=== PATIENT | female | born 1980 | race African-American/Black ===

== ENCOUNTER 2017-01-24 08:29 | Inpatient (IN) | payer OTHER ==
[~2017-01-24] VITALS: Ht 152.4 cm; Wt 115.7 kg
[~2017-01-24 08:29] MED LIST: ACETAMINOPHEN325 M1 PO; ALDOMET250 MG PO; ALPRAZOLAM 0.0.25 M1 PO; AMITRIPTYLINE H25 M2 PO; AMITRIPTYLINE H25 M3 PO; AMOXICILLIN250 M1 PO; ATIVAN0.5 MG PO; ATIVAN1 MG PO; BACTRIM DS TAB1 EACH PO; BENADRYL25 MG PO; CATAPRES-TTS 20.2 M1 TD; CATAPRES-TTS 20.2 M1 TP; CATAPRESS3 TD; CEFTIN500 MG PO; CIPROFLOXACIN500 M1 PO; CIPROFLOXACIN500 M3 PO; CITRATE OF MAG296 ML PO; COLACE100 MG PO; COUMADIN 4 MG TA4 M1; COUMADIN 5 MG TA5 M1 PO; DILAUDID; DILAUDID 2 MG TA2 MG PO; DILAUDID2 M1 PO; DIPHENHYDRAMINE50 MG PO; DOLOPHINE HCL5 MG; DOMPERIDONE PO; ENDOCET 5-3251 EACH PO; ERYTHROMYCIN250 MG; ESTRACE1 MG PO; FAMOTIDINE; FENTANYL PA50 MCG/HR TRANSDERM; FLAGYL500 MG PO; FLUCONAZOLE 10100 MG; GABAPENTIN 100100 MG PO; GABAPENTIN PO; GABAPENTIN100 MG PO; GLYCOLAX POWDER17 G1 PO; HYDRALAZINE 2525 M1 PO; HYDROCODONE-AP1 EA12 PO; IBUPROFEN 200200 M1 PO; KLOR-CON 1010 MEQ PO; L-GLUTAMINE500 M1; LANTUS; LANTUS SC; LANTUS SUBQ; LEVEMIR SC; LEVEMIR SUBQ; LISINOPRIL20 MG PO; LISINOPRIL40 MG PO; LOPRESSOR25; LOPRESSOR25 PO; LORAZEPAM 1 MG T1 M1 PO; LORAZEPAM 1 MG T1 MG PO; MIRALAX255 GM PO; MIRTAZAPINE15 M1; MS CONTIN 100100 MG PO; MULTI-VITAMIN1 EAC5 PO; MULTIVITAMINS PO; MYDRIACYL15 ML OPHTHALMIC; NAFCILLIN 2 GM A2 G1 IV; NEURONTIN800 MG PO; NORCO 5-325 TA1 EACH PO; NORVASC10 MG PO; NOVOLOG100 UNIT/1; NOVOLOG100 UNIT/1 SQ; NOVOLOG100 UNIT/1 SUBQ; OMEPRAZOLE 20 M20 M1 PO; OMEPRAZOLE 20 M20 MG PO; ONDANSETRON HCL4 M2 PO; PEPCID40 MG PO; PERCOCET 5-3251 EACH PO; PHENERGAN 25 MG25 M1 PO; PRENATAL PO; PRINIVIL10 MG PO; PROTONIX40 M2 PO; RANITIDINE 150150 MG PO; REGLAN 5 MG TAB5 M1 PO; REMERON15 MG PO; SLOW-MAG64 MG PO; SYNTHROID88 MCG PO; TOPROL XL100 MG PO; TRANDATE 200 M200 M1 PO; TRANSDERM-SCO1 PATC1 TD; TRANSDERM-SCO1 PATC1 TOP; TRANSDERM-SCO1 PATC1 TRANSDERM; TRANSDERM-SCO1 PATCH TD; XANAX 0.5 MG0.5 MG PO; ZANTAC PO; ZOFRAN 4 MG ORAL4 M1 DIS; ZOFRAN 4 MG ORAL4 M1 PO; ZOFRAN 4 MG ORAL4 MG PO; ZOFRAN ODT4 MG PO; ZOFRAN4 MG; ZOFRAN4 MG PO; ZOFRAN8 MG; ZOFRAN8 MG PO; [UNRECOGNIZED DRUG - OTHER] PO
[2017-01-24 08:30] VITALS: BP 154/66
[2017-01-24 09:28] LABS: ABSOLUTE NEUTROPHILS 7.5 thou/uL (1.4-8.2); BASOPHILS 0.4 % (0.0-2.0); EOSINOPHILS 0.3 % (0.0-3.0); HEMOGLOBIN 11.2 gm/dL (12.0-15.0); LYMPHOCYTES 18.1 % (24.0-44.0); MCHC 32.1 g/dL (28.0-37.0); MCV 84.1 fL (80.0-100.0); MONOCYTES 3.5 % (1.0-8.0); PLATELET COUNT 239 thou/uL (150-400); POLYS 77.7 % (36.0-66.0); RBC 4.16 mil/uL (4.20-5.00); RDW 15.9 % (10.5-14.5); WBC 9.6 thou/uL (4.0-11.0)
[2017-01-24 09:30] LABS: MANUAL DIFF NO
[2017-01-24 09:43] LABS: CALCIUM 10.3 mg/dL (8.5-10.1); CREATININE 2.5 mg/dL (0.6-1.0); DIRECT BILIRUBIN 0.1 mg/dL (<0.1-0.3); POTASSIUM 4.6 mmol/L (3.5-5.1); TOTAL BILIRUBIN 0.5 mg/dL (<0.1-1.0); TOTAL PROTEIN 9.2 g/dL (6.4-8.2)
[2017-01-24] MEDS ORDERED: AMITRIPTYLINE H25 M2 PO (09:54)
[2017-01-24 13:01] VITALS: BP 133/71
[2017-01-24 19:34] VITALS: BP 146/74
[2017-01-25 02:06] LABS: GLYCOHEMOGLOBIN (HGB A1C) 14.8 % (4.8-5.6)
[2017-01-25 05:04] VITALS: BP 144/74
[2017-01-25 08:41] LABS: CALCIUM 9.2 mg/dL (8.5-10.1); CREATININE 1.6 mg/dL (0.6-1.0); POTASSIUM 4.4 mmol/L (3.5-5.1)
[2017-01-25 11:49] LABS: ABSOLUTE NEUTROPHILS 7.2 thou/uL (1.4-8.2); BASOPHILS 0.4 % (0.0-2.0); EOSINOPHILS 1.1 % (0.0-3.0); HEMATOCRIT 34.1 % (37.0-47.0); HEMOGLOBIN 11.1 gm/dL (12.0-15.0); LYMPHOCYTES 23.6 % (24.0-44.0); MCHC 32.6 g/dL (28.0-37.0); MCV 82.8 fL (80.0-100.0); MONOCYTES 5.1 % (1.0-8.0); PLATELET COUNT 235 thou/uL (150-400); POLYS 69.8 % (36.0-66.0); RBC 4.12 mil/uL (4.20-5.00); RDW 15.5 % (10.5-14.5); WBC 10.3 thou/uL (4.0-11.0)
[2017-01-25 11:55] LABS: MANUAL DIFF NO
[2017-01-25 16:12] VITALS: BP 146/77
[2017-01-25 20:38] VITALS: BP 144/84
[2017-01-26 05:10] VITALS: BP 143/71
[2017-01-26 06:17] LABS: BASOPHILS 0.4 % (0.0-2.0); EOSINOPHILS 1.1 % (0.0-3.0); HEMOGLOBIN 9.7 gm/dL (12.0-15.0); LYMPHOCYTES 29.8 % (24.0-44.0); MCH 27.1 pg (26.0-34.0); MCHC 32.4 g/dL (28.0-37.0); MCV 83.6 fL (80.0-100.0); MONOCYTES 5.3 % (1.0-8.0); PLATELET COUNT 213 thou/uL (150-400); POLYS 63.4 % (36.0-66.0); RBC 3.58 mil/uL (4.20-5.00); WBC 9.5 thou/uL (4.0-11.0)
[2017-01-26 06:21] LABS: MANUAL DIFF NO
[2017-01-26 08:25] VITALS: BP 152/78
[2017-01-26 16:13] VITALS: BP 119/77
[2017-01-26 18:07] LABS: FREE T4 1.55 ng/dL (0.82-1.77)
[2017-01-26 19:46] VITALS: BP 179/86
[2017-01-27 01:45] LABS: URINE BILIRUBIN NEGATIVE (Negative); URINE BLOOD 3+ (Negative); URINE COLOR YELLOW; URINE GLUCOSE-RANDOM* 3+ (Negative); URINE KETONES NEGATIVE (Negative); URINE LEUKOCYTES-REFLEX NEGATIVE (Negative); URINE PROTEIN (DIPSTICK) 2+ (Negative); URINE SPECIFIC GRAVITY 1.015 (1.003-1.035); URINE UROBILINOGEN 0.2 E.U./dl (0.2-1.0)
[2017-01-27 01:52] LABS: CASTS None Seen /LPF (None Seen); CRYSTALS None Seen /LPF (None Seen); SQUAMOUS >10 Many /LPF (0-3); URINE RBC 3-10 Few /HPF (0-2); URINE WBC-REFLEX 0-5 Rare /HPF (0-5)
[2017-01-27 03:47] VITALS: BP 146/76
[2017-01-27 08:00] VITALS: BP 148/72
[2017-01-27 18:01] VITALS: BP 138/79
[2017-01-27 19:29] VITALS: BP 180/87
[2017-01-28 03:21] VITALS: BP 155/69
[2017-01-28 05:58] LABS: ABSOLUTE NEUTROPHILS 5.9 thou/uL (1.4-8.2); BASOPHILS 0.5 % (0.0-2.0); EOSINOPHILS 1.3 % (0.0-3.0); HEMATOCRIT 28.8 % (37.0-47.0); HEMOGLOBIN 9.4 gm/dL (12.0-15.0); LYMPHOCYTES 26.6 % (24.0-44.0); MCH 27.5 pg (26.0-34.0); MCHC 32.5 g/dL (28.0-37.0); MCV 84.7 fL (80.0-100.0); MONOCYTES 6.4 % (1.0-8.0); PLATELET COUNT 188 thou/uL (150-400); POLYS 65.2 % (36.0-66.0); RBC 3.41 mil/uL (4.20-5.00); RDW 15.8 % (10.5-14.5); WBC 9.1 thou/uL (4.0-11.0)
[2017-01-28 06:06] LABS: MANUAL DIFF NO
[2017-01-28 06:15] LABS: ALBUMIN 2.8 g/dL (3.4-5.0); CALCIUM 8.4 mg/dL (8.5-10.1); CREATININE 1.3 mg/dL (0.6-1.0); POTASSIUM 3.4 mmol/L (3.5-5.1); TOTAL BILIRUBIN 0.3 mg/dL (<0.1-1.0); TOTAL PROTEIN 6.7 g/dL (6.4-8.2)
[2017-01-28 09:26] VITALS: BP 150/81
[2017-01-28 16:00] VITALS: BP 141/69
[2017-01-28 18:51] VITALS: BP 155/74
[2017-01-29 02:30] VITALS: BP 152/82
[2017-01-29 07:45] VITALS: BP 169/80
[2017-01-29 11:39] VITALS: BP 169/80
== END 2017-01-29 14:42 | disposition home or self-care (01) | DRG 392 ==
LOC: ER 08:29 → 5S 11:50 → EROBS 11:50 → 5S 12:45
PROVIDERS: Emergency Medicine; Family Medicine; Nurse Practitioner Adult Health; Nurse Practitioner Family
DX: K31.84 Gastroparesis (principal); N17.9 Acute kidney failure, unspecified; E87.1 Hypo-osmolality and hyponatremia; E10.65 Type 1 diabetes mellitus with hyperglycemia; E10.43 Type 1 diabetes mellitus with diabetic autonomic (poly)neuropathy; E86.0 Dehydration; I10 Essential (primary) hypertension; E03.9 Hypothyroidism, unspecified; T45.0X5A Adverse effect of antiallergic and antiemetic drugs, initial encounter; Z95.0 Presence of cardiac pacemaker; Z88.8 Allergy status to other drugs, medicaments and biological substances; Z79.899 Other long term (current) drug therapy; Z90.49 Acquired absence of other specified parts of digestive tract
CPT/HCPCS: 10086; 27001

== ENCOUNTER 2017-02-26 03:33 | Emergency (ER) | payer OTHER ==
[~2017-02-26] VITALS: Ht 167.6 cm; Wt 136.1 kg
--- NOTE | ~2017-02-26 | EKG ---
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: WHITNEY : 1980 Requested By: Edward Rivera Order Number: [id number] MD: Oscar Dent Measurements Intervals [place] Rate: 95 P: 64 TN: 201 QRS: 14 QRSD: 88 T: 172 QT: 373 QTc: 469 Interpretive Statements Sinus rhythm Nonspecific ST and T wave abnormality Prolonged QT interval Compared to ECG 06/18/2012 18:29:05 No significant change was found Electronically Signed On 02-27-2017 17:53:33 CDT by Oscar Dent [email or web address] <ELECTRONICALLY SIGNED> By: Oscar Dent MD, [facility] 02/27/17 1753 [id number] Oscar Dent MD, [facility] /EPI
[2017-02-26 05:00] LABS: ABSOLUTE NEUTROPHILS 9.9 thou/uL (1.4-8.2); BASOPHILS 0.6 % (0.0-2.0); EOSINOPHILS 0.8 % (0.0-3.0); HEMATOCRIT 34.2 % (37.0-47.0); LYMPHOCYTES 16.6 % (24.0-44.0); MCH 26.7 pg (26.0-34.0); MCV 83.4 fL (80.0-100.0); MONOCYTES 5.1 % (1.0-8.0); PLATELET COUNT 286 thou/uL (150-400); POLYS 76.9 % (36.0-66.0); RDW 15.7 % (10.5-14.5); WBC 12.8 thou/uL (4.0-11.0)
[2017-02-26 05:03] LABS: URINE BILIRUBIN NEGATIVE (Negative); URINE BLOOD 1+ (Negative); URINE COLOR YELLOW; URINE GLUCOSE-RANDOM* 3+ (Negative); URINE KETONES NEGATIVE (Negative); URINE LEUKOCYTES-REFLEX NEGATIVE (Negative); URINE PROTEIN (DIPSTICK) 2+ (Negative); URINE UROBILINOGEN 0.2 E.U./dl (0.2-1.0)
[2017-02-26 05:06] LABS: MANUAL DIFF NO
[2017-02-26 05:38] LABS: CASTS None Seen /LPF (None Seen); CRYSTALS None Seen /LPF (None Seen); SQUAMOUS >10 Many /LPF (0-3); URINE RBC 3-10 Few /HPF (0-2); URINE WBC-REFLEX 0-5 Rare /HPF (0-5)
[2017-02-26 06:02] LABS: CALCIUM 8.8 mg/dL (8.5-10.1); CREATININE 1.6 mg/dL (0.6-1.0); POTASSIUM 3.5 mmol/L (3.5-5.1)
[2017-02-26 06:08] LABS: ALBUMIN 3.4 g/dL (3.4-5.0); TOTAL BILIRUBIN 0.2 mg/dL (<0.1-1.0); TOTAL PROTEIN 7.5 g/dL (6.4-8.2)
[2017-02-26] MEDS ORDERED: PRILOSEC 20 MG20 MG PO (06:16)
[2017-02-26] MEDS ORDERED: ZOFRAN ODT8 MG PO (06:16)
[2017-02-26] MEDS ORDERED: NORCO 5-325 TA1 EACH PO (06:16)
[2017-02-27] MEDS ORDERED: ZOFRAN ODT4 MG PO (00:03)
== END 2017-02-26 07:41 | disposition home or self-care (01) ==
LOC: ER 03:33
PROVIDERS: Emergency Medicine
DX: E11.43 Type 2 diabetes mellitus with diabetic autonomic (poly)neuropathy (principal); K31.84 Gastroparesis; Z88.8 Allergy status to other drugs, medicaments and biological substances; Z79.4 Long term (current) use of insulin

== ENCOUNTER 2017-02-26 23:30 | Emergency (ER) | payer OTHER ==
[~2017-02-26] VITALS: Ht 167.6 cm; Wt 136.1 kg
[~2017-02-26 23:30] MED LIST changes: +PRILOSEC 20 MG20 MG PO; +ZOFRAN ODT8 MG PO
[2017-02-27] MEDS ORDERED: ZOFRAN ODT4 MG PO (00:03)
== END 2017-02-27 01:04 | disposition home or self-care (01) ==
LOC: ER 23:30
DX: G89.29 Other chronic pain (principal); R10.9 Unspecified abdominal pain; G43.A0 Cyclical vomiting, in migraine, not intractable; F12.10 Cannabis abuse, uncomplicated; E11.9 Type 2 diabetes mellitus without complications; F10.99 Alcohol use, unspecified with unspecified alcohol-induced disorder; Z88.8 Allergy status to other drugs, medicaments and biological substances; Z98.890 Other specified postprocedural states; Z79.4 Long term (current) use of insulin

== ENCOUNTER 2017-05-02 13:26 | Emergency (ER) | payer OTHER ==
[~2017-05-02] VITALS: Ht 167.6 cm; Wt 108.9 kg
[~2017-05-02 13:26] MED LIST changes: +FLEXERIL PO
[2017-05-02 15:38] LABS: ABSOLUTE NEUTROPHILS 11.5 thou/uL (1.4-8.2); BASOPHILS 0.4 % (0.0-2.0); EOSINOPHILS 0.5 % (0.0-3.0); HEMATOCRIT 36.5 % (37.0-47.0); HEMOGLOBIN 11.3 gm/dL (12.0-15.0); LYMPHOCYTES 14.2 % (24.0-44.0); MCH 25.8 pg (26.0-34.0); MCHC 30.9 g/dL (28.0-37.0); MCV 83.5 fL (80.0-100.0); MONOCYTES 3.9 % (1.0-8.0); PLATELET COUNT 248 thou/uL (150-400); RBC 4.37 mil/uL (4.20-5.00); RDW 14.9 % (10.5-14.5); WBC 14.2 thou/uL (4.0-11.0)
[2017-05-02 15:39] LABS: MANUAL DIFF NO
[2017-05-02 15:57] LABS: CALCIUM 9.2 mg/dL (8.5-10.1); CREATININE 1.6 mg/dL (0.6-1.0)
[2017-05-02 16:03] LABS: ALBUMIN 3.5 g/dL (3.4-5.0); TOTAL BILIRUBIN 0.5 mg/dL (<0.1-1.0); TOTAL PROTEIN 7.5 g/dL (6.4-8.2)
[2017-05-02] MEDS ORDERED: ZOFRAN ODT4 M1 PO (17:37)
== END 2017-05-02 18:00 | disposition left against medical advice (07) ==
LOC: ER 13:26
PROVIDERS: Physician Assistant
DX: R11.2 Nausea with vomiting, unspecified (principal); N18.9 Chronic kidney disease, unspecified; K31.84 Gastroparesis; E11.9 Type 2 diabetes mellitus without complications; Z88.1 Allergy status to other antibiotic agents; Z88.8 Allergy status to other drugs, medicaments and biological substances

== ENCOUNTER 2018-12-26 17:27 | Emergency (ER) | payer OTHER ==
[~2018-12-26] VITALS: Ht 167.6 cm; Wt 108.9 kg
[~2018-12-26 17:27] MED LIST changes: +ZOFRAN ODT4 M1 PO
[2018-12-26 18:46] LABS: BASOPHILS 0.6 % (0.0-2.0); EOSINOPHILS 0.8 % (0.0-3.0); HEMATOCRIT 32.5 % (37.0-47.0); HEMOGLOBIN 10.4 gm/dL (12.0-15.0); MCH 25.5 pg (26.0-34.0); MCV 79.8 fL (80.0-100.0); MONOCYTES 5.9 % (1.0-8.0); PLATELET COUNT 295 thou/uL (150-400); POLYS 66.7 % (36.0-66.0); RBC 4.08 mil/uL (4.20-5.00); RDW 15.7 % (10.5-14.5); WBC 10.5 thou/uL (4.0-11.0)
[2018-12-26 18:50] LABS: CALCIUM 8.9 mg/dL (8.5-10.1)
[2018-12-26 18:56] LABS: ALBUMIN 2.4 g/dL (3.4-5.0); TOTAL BILIRUBIN 0.2 mg/dL (<0.1-1.0); TOTAL PROTEIN 7.1 g/dL (6.4-8.2)
[2018-12-26 19:17] LABS: URINE BILIRUBIN NEGATIVE (Negative); URINE BLOOD TRACE (Negative); URINE CLARITY CLEAR; URINE COLOR YELLOW; URINE GLUCOSE-RANDOM* 1+ (Negative); URINE KETONES NEGATIVE (Negative); URINE LEUKOCYTES-REFLEX NEGATIVE (Negative); URINE PROTEIN (DIPSTICK) 2+ (Negative); URINE SPECIFIC GRAVITY <= 1.005 (1.005-1.035); URINE UROBILINOGEN 0.2 E.U./dl (0.2-1.0)
[2018-12-26 19:19] LABS: URINE NITRITE-REFLEX POSITIVE (Negative)
[2018-12-26 19:35] LABS: AMORPHOUS URATES Moderate /LPF (None Seen); CASTS None Seen /LPF (None Seen); CRYSTALS None Seen /LPF (None Seen); SQUAMOUS 4-10 Moderate /LPF (0-3); URINE RBC 0-2 Rare /HPF (0-2)
[2018-12-26 19:36] LABS: BACTERIA-REFLEX 1-9 Few /HPF (None Seen); URINE WBC-REFLEX None Seen /HPF (0-5)
[2018-12-26] MEDS ORDERED: KEFLEX500 M1 PO (19:51)
[2018-12-26] MEDS ORDERED: ZOFRAN ODT4 MG PO (19:51)
[2018-12-26 21:43] VITALS: BP 175/92
== END 2018-12-26 21:46 | disposition home or self-care (01) ==
LOC: ER 17:27
PROVIDERS: Nurse Practitioner Family
DX: N39.0 Urinary tract infection, site not specified (principal); K31.84 Gastroparesis; G89.29 Other chronic pain; R10.9 Unspecified abdominal pain; E11.9 Type 2 diabetes mellitus without complications; Z88.8 Allergy status to other drugs, medicaments and biological substances

== ENCOUNTER 2020-02-10 15:36 | Emergency (ER) | payer OTHER ==
[~2020-02-10] VITALS: Ht 170.2 cm; Wt 114.8 kg
[~2020-02-10 15:36] MED LIST changes: +KEFLEX500 M1 PO
[2020-02-10 16:47] LABS: HEMATOCRIT 36.8 % (37.0-47.0); HEMOGLOBIN 11.6 gm/dL (12.0-15.0); MCH 26.4 pg (26.0-34.0); MCHC 31.7 g/dL (28.0-37.0); MCV 83.5 fL (80.0-100.0); PLATELET COUNT 196 thou/uL (150-400); RDW 17.3 % (10.5-14.5); WBC 6.2 thou/uL (4.0-11.0)
[2020-02-10 16:59] LABS: ANION GAP 11 mmol/L (7-16); BUN 44 mg/dL (7-18); CALCIUM 8.6 mg/dL (8.5-10.1); CHLORIDE 106 mmol/L (98-107); CO2 21 mmol/L (21-32); CREATININE 4.4 mg/dL (0.6-1.0); GLUCOSE 172 mg/dL (74-106); POTASSIUM 4.3 mmol/L (3.5-5.1); SODIUM 138 mmol/L (136-145)
[2020-02-10 17:12] LABS: TROPONIN-I <0.06 ng/mL (<0.06)
[2020-02-10 17:51] LABS: ABSOLUTE NEUTROPHILS 4.5 thou/uL (1.4-8.2); PLATELET ESTIMATE NORMAL
[2020-02-10 19:14] VITALS: BP 171/102
--- NOTE | 2020-02-11 07:48 | EKG ---
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: [facility] : 1980 Requested By: Devonte Sorenson Order Number: [id number] MD: Oscar Dent Measurements Intervals [place] Rate: 75 P: 37 [place]: 143 QRS: 17 QRSD: 135 T: 129 QT: 461 QTc: 515 Interpretive Statements Sinus rhythm Right bundle branch block Nonspecific T abnormalities, lateral leads Baseline wander in lead(s) V3 Compared to ECG 02/26/2017 23:34:51 Right bundle-branch block now present T-wave abnormality now present Prolonged QT interval no longer present Electronically Signed On 02-11-2020 7:48:45 CDT by Oscar Dent [email or web address] <ELECTRONICALLY SIGNED> By: Oscar Dent MD, [facility] 02/11/20 0748 1548 1548 Oscar Dent MD, [facility] /EPI
== END 2020-02-10 19:15 | disposition left against medical advice (07) ==
LOC: ER 15:36
PROVIDERS: Emergency Medicine
DX: R07.9 Chest pain, unspecified (principal); G89.29 Other chronic pain; R10.9 Unspecified abdominal pain; I50.89 Other heart failure; E11.9 Type 2 diabetes mellitus without complications; Z95.0 Presence of cardiac pacemaker; Z79.899 Other long term (current) drug therapy; Z79.4 Long term (current) use of insulin; Z88.8 Allergy status to other drugs, medicaments and biological substances

== ENCOUNTER 2021-01-25 17:51 | Inpatient (IN) | payer OTHER ==
[~2021-01-25] VITALS: Ht 172.7 cm; Wt 91.2 kg
[2021-01-25 17:59] VITALS: BP 165/83
--- NOTE | 2021-01-25 20:12 | NUR ---
Lab called to come collect specimen. Dr. Martínez notified of difficulty obtaining labs.
[2021-01-25 20:47] LABS: ABSOLUTE NEUTROPHILS 5.3 thou/uL (1.4-8.2); BASOPHILS 0.7 % (0.0-2.0); EOSINOPHILS 0.3 % (0.0-3.0); HEMATOCRIT 30.6 % (37.0-47.0); HEMOGLOBIN 10.2 gm/dL (12.0-15.0); LYMPHOCYTES 14.4 % (24.0-44.0); MCH 26.3 pg (26.0-34.0); MCHC 33.2 g/dL (28.0-37.0); MCV 79.3 fL (80.0-100.0); PLATELET COUNT 154 thou/uL (150-400); POLYS 76.6 % (36.0-66.0); RBC 3.85 mil/uL (4.20-5.00); RDW 22.3 % (10.5-14.5); WBC 6.9 thou/uL (4.0-11.0)
--- NOTE | 2021-01-25 20:55 | NUR ---
PATIENT CONTINUALLY SCREAMING HELP AND FLAILING AROUND UNTIL AN RN WALKED IN AND TOLD PATIENT THEY WERE GOING TO GIVE HER PAIN MEDICINE. AFTER RN TOLD PATIENT THAT, PATIENT LAID BACK CALMLY IN BED AND WAS SOCIAL, NO LONGER YELLING OR FLAILING, BEFORE RECIEVING PAIN MEDICINE.
[2021-01-25 21:08] LABS: ALBUMIN 2.7 g/dL (3.4-5.0); CALCIUM 6.4 mg/dL (8.5-10.1); CREATININE 5.2 mg/dL (0.6-1.0); TOTAL BILIRUBIN 0.5 mg/dL (0.2-1.0); TOTAL PROTEIN 6.3 g/dL (6.4-8.2)
[2021-01-25 21:13] LABS: POTASSIUM 2.2 mmol/L (3.5-5.1)
[2021-01-25] MEDS ORDERED: COZAAR 25 MG TA25 M1 PO (23:08)
[2021-01-25] MEDS ORDERED: LASIX 20 MG TAB20 MG PO (23:09)
[2021-01-25] MEDS ORDERED: CARVEDILOL25 MG PO (23:09)
[2021-01-25] MEDS ORDERED: OMEPRAZOLE 20 M20 M1 PO (23:10)
[2021-01-25] MEDS ORDERED: LIPITOR40 MG PO (23:10)
[2021-01-25 23:33] VITALS: BP 143/79
[2021-01-25 23:35] VITALS: BP 164/87
--- NOTE | 2021-01-26 03:40 | NUR ---
RECIEVED PT FROM ED, UPON ARRIVAL TO ROOM 442 ALERT AND ORIENTED X4, ASSESSMENT COMPLETED AND DATA BASE COMPLETED. PT VERBALIZED UNDERSTANDING AND REQUESTING ZOFRAN FOR N/V. IV MEDIATION GIVEN PRESCRIBED. WILL CONITNUE WITH POC AND WILL CALL WITH CHANGES.
[2021-01-26 04:42] VITALS: BP 167/75
[2021-01-26 07:15] VITALS: BP 168/80
[2021-01-26 08:38] LABS: HEMATOCRIT 35.9 % (37.0-47.0); HEMOGLOBIN 11.4 gm/dL (12.0-15.0); MCH 25.8 pg (26.0-34.0); MCHC 31.7 g/dL (28.0-37.0); MCV 81.3 fL (80.0-100.0); RBC 4.41 mil/uL (4.20-5.00); RDW 22.4 % (10.5-14.5); WBC 6.8 thou/uL (4.0-11.0)
[2021-01-26 09:08] LABS: MAGNESIUM 3.1 mg/dL (1.8-2.4)
[2021-01-26 09:17] LABS: POTASSIUM 3.6 mmol/L (3.5-5.1)
[2021-01-26 09:18] LABS: CALCIUM 8.9 mg/dL (8.5-10.1); CREATININE 6.8 mg/dL (0.6-1.0)
--- NOTE | 2021-01-26 13:54 | NUR ---
ASSESSMENT: CM REVIEWED CHART AND MET WITH PATIENT AT THE BEDSIDE. PT IS ALERT AND ORIENTED X4, PT WAS ADMITTED DUE TO INTRACTABLE ABDOMINAL PAIN. PER RECORDS PT WAS JUST RECENTLY AT [facility] AND [facility] WITH SAME SYMPTOMS. PT HAS HX OF DM, ESRD AND RECEIVES DIALYSIS AT [facility], AND GASTROPAERSIS. CM CONTACTED [facility] AND SPOKE TO MAURA AND NOTIFIED HER OF ADMISSION. CM ALSO FAXED UDPATED CLINICAL TO [facility] [phone]. PT REPORTS LIVING IN A HOUSE WITH HER . PT REPORTS ABOUT 20 STEPS WITH HANDRAILS TO ENTER. PT REPORTS BEING FULLY INDEPENDENT WITH ADLS AND AMBULATION. PT REPORTS HAVING HH IN THE PAST BUT UNSURE THE AGENCY. PT REPORTS HER PCP IS DR. JUDIE BOATENG. CM DISCUSSED ROLE. PT SHOULD HAVE NO NEEDS FROM CM.
[2021-01-26 15:37] VITALS: BP 148/77
--- NOTE | 2021-01-26 16:18 | NUR ---
PT IS A&O*4, ROOM AIR, GET UP BY 1 ASSISTANCE. D/C NAVARRO IN THE MORNING AND PT USE BEDSIDE COMMOD. PT REPORT PAIN ON SURGICAL SIDE AND SORE ON LEGS. PT STANDING UP AROUND 5 MINS AND SITTING AT BEDSIDE FOR 10 MIN AFTER FIRST TIME USED COMMOD. PRN HYDROCODONE AND SCHEDULED IV TORADOL GIVEN, PT REPORT PARTIAL PAIN RELIED AND FALL ASLLEP IN THE AFTERNOON. VALE RAMEY NOTIFIED FOR PT ORDERED AND SUGGESTED PT TO WALK WITH PT FIRST TOMORROW BEFORE WALK AROUND BYSELF FOR SAFETY AND PAIN CONTROL. WOUND VAC IS INTACT. WILL KEEP MONITOR PATIENT'S PAIN AND VS.
--- NOTE | 2021-01-26 19:51 | NUR ---
PT IS A&O*4, ROOM AIR, GET UP BY ROSIO. 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 PT SAID: IT IS OKAY WITHOUT PAIN MEDICATION BUT HAVE IV ZOFRAN AND IV BENADYL AVALIABLE FOR HER NAUSEA. DR. ROMERO NOTIFIED AND ORDER PRN NAUSEA MEDICTAION FOR PATIENT. PATIENT REPORT NAUSEA HAS BEEN PARTIAL RELIEFED AFTER MEDICATION GIVEN. PT'S HEMODYALISIS IS DONE AROUND 18:20. NOTIFIED PHARMACY TO PUSH BACK ERYTHOMYCIN SINCE DIALYSIS NURSE NOT SUGGEST TO GIVE PT IV ABX DURING DIALYSIS. EGD SCHEDULED TOMORROW AND PT WAS EDUCATED TO START NPO AFTER MIDNIGHT TONIGHT.
[2021-01-26 19:53] VITALS: BP 105/60
--- NOTE | 2021-01-27 06:49 | NUR ---
aSSUMED PT'S CARE THIS PM SHIFT. ALERT AND ORIENTED. VSS. MEDS GIVEN PER EMAR. PT SLEPT WELL THIS SHIFT. NPO AFTER MN FOR EGD TODAY. AD ROSIO. CALL LIGHT WITHIN REACH. WILL CONTINUE TO MONITOR.
[2021-01-27 07:20] VITALS: BP 137/63
--- NOTE | 2021-01-27 15:03 | NUR ---
ASSUMED PT CARE THIS AM. PT IS ALERT & ORIENTED X4. REMOVED IV DUE TO INFILTRATED. PLACED NEW IV. PT HAS L US FISTULA. HEMODIALYSIS EVERY M,W,F/ PT IS ACCUCHECK ACHS. PT C/O OF NAUSEA AND ITCHING AND GIVEN MEDS PER PT REQUEST. COLLECTED URINE AND COVID PER PRE OP. AWAITING FOR THE RESULT OF POTASSIUM PRIOR SURGERY. WILL CONTINUE TO MONITOR PT. FOLLOW POC.
[2021-01-27 19:40] VITALS: BP 112/58
[2021-01-27 20:25] VITALS: BP 174/93
[2021-01-27 23:57] VITALS: BP 157/68
--- NOTE | 2021-01-28 03:08 | NUR ---
PT IS A/O X4 AND IS UP AD ROSIO IN ROOM. VSS AFEBRILE. HS BS WNL. C/O ITCHING AND NAUSEA. PRN MEDICATION GIVEN DIRECTED FOR ITCHING AND NAUSEA. PT BROUGHT HER DINNER. SHE C/O DIARRHEA X1. HS BS 101. PT REFUSED SCHEDULED INSULIN. FALL PRECAUTIONS IN PLACE, CALL LIGHT IS WITHIN REACH. WILL CONTINUE TO MONITOR.
[2021-01-28 04:20] VITALS: BP 144/73
[2021-01-28 07:40] VITALS: BP 148/76
[2021-01-28 08:55] LABS: ABSOLUTE NEUTROPHILS 2.7 thou/uL (1.4-8.2); BASOPHILS 0.8 % (0.0-2.0); HEMATOCRIT 33.8 % (37.0-47.0); HEMOGLOBIN 10.7 gm/dL (12.0-15.0); LYMPHOCYTES 33.2 % (24.0-44.0); MCH 25.8 pg (26.0-34.0); MCHC 31.8 g/dL (28.0-37.0); MCV 81.2 fL (80.0-100.0); MONOCYTES 10.8 % (1.0-8.0); PLATELET COUNT 159 thou/uL (150-400); POLYS 52.2 % (36.0-66.0); RBC 4.16 mil/uL (4.20-5.00); RDW 21.2 % (10.5-14.5); WBC 5.2 thou/uL (4.0-11.0)
[2021-01-28 09:21] LABS: ALBUMIN 3.1 g/dL (3.4-5.0); CALCIUM 8.4 mg/dL (8.5-10.1); CREATININE 7.1 mg/dL (0.6-1.0); MAGNESIUM 2.2 mg/dL (1.8-2.4); TOTAL BILIRUBIN 0.5 mg/dL (0.2-1.0); TOTAL PROTEIN 7.1 g/dL (6.4-8.2)
[2021-01-28 09:22] LABS: POTASSIUM 4.3 mmol/L (3.5-5.1)
[2021-01-28 09:48] LABS: ANISOCYTOSIS 2+; PLATELET ESTIMATE NORMAL
[2021-01-28] MEDS ORDERED: AF CAPSICUM 0.060 GM TOP (15:54)
--- NOTE | 2021-01-28 16:09 | NUR ---
PT ASSESSED AT START OF SHIFT. PT CALM AND COOPERATIVE. DRS. DIAZ AND BOBBY ROUNDED THIS AM TOGETHER. PT GI SYMPTOMS BETTER. DID NUTRUTIONAL EDUCATION RE GASTROPARESIS. DIALYSIS THIS AFTERNOON AND PLAN FOR PT TO DISCHARGE HOME AFTER. SON HERE VISITING. IV ERYTHROMYCIN GIVEN AFTER NEW IV ACCESS AVAILABLE. ZOFRAN GIVEN PRIOR TO LUNCH TO HELP W/ MEAL.
[2021-01-28 16:57] VITALS: BP 148/76
--- NOTE | 2021-01-28 16:59 | NUR ---
ON-GOING ASSESSMENT: CM REVIEWED CHART. PT HAS ORDERS TO DISCHARGE HOME TODAY. CM NOTIFIED [facility]. [facility]
[2021-01-28 17:54] VITALS: BP 148/76
== END 2021-01-28 18:29 | disposition home or self-care (01) | DRG 73 ==
LOC: ER 17:51 → EROBS 21:47 → 4S 21:47 → EROBS 21:48 → 4S 23:05
PROVIDERS: Emergency Medicine; Internal Medicine; Nurse Practitioner Family; ADMIT Internal Medicine; ATTEND Internal Medicine
PROC: 5A1D70Z Performance of Urinary Filtration, Intermittent, Less than 6 Hours Per Day (ICD-10-PCS; principal; 2021-01-26)
PROC: 0DJ08ZZ Inspection of Upper Intestinal Tract, Via Natural or Artificial Opening Endoscopic (ICD-10-PCS; 2021-01-27)
PROC: 5A1D70Z Performance of Urinary Filtration, Intermittent, Less than 6 Hours Per Day (ICD-10-PCS; 2021-01-28)
DX: E11.43 Type 2 diabetes mellitus with diabetic autonomic (poly)neuropathy (principal); N18.6 End stage renal disease; I12.0 Hypertensive chronic kidney disease with stage 5 chronic kidney disease or end stage renal disease; K31.84 Gastroparesis; Z20.822 Contact with and (suspected) exposure to COVID-19; E87.6 Hypokalemia; F32.9 Major depressive disorder, single episode, unspecified; E78.5 Hyperlipidemia, unspecified; E11.22 Type 2 diabetes mellitus with diabetic chronic kidney disease; F17.210 Nicotine dependence, cigarettes, uncomplicated; Z96.89 Presence of other specified functional implants; F12.90 Cannabis use, unspecified, uncomplicated; E66.3 Overweight; Z68.30 Body mass index [BMI] 30.0-30.9, adult; Z88.8 Allergy status to other drugs, medicaments and biological substances; Z76.5 Malingerer [conscious simulation]
CPT/HCPCS: 10195; 32100; 62110; 62900; 70005

== ENCOUNTER 2021-02-10 13:19 | Emergency (ER) | payer OTHER ==
[~2021-02-10] VITALS: Ht 167.6 cm; Wt 86.6 kg
[~2021-02-10 13:19] MED LIST changes: +AF CAPSICUM 0.060 GM TOP; +CARVEDILOL25 MG PO; +COZAAR 25 MG TA25 M1 PO; +LASIX 20 MG TAB20 MG PO; +LIPITOR40 MG PO
[2021-02-10 15:11] LABS: HEMATOCRIT 37.3 % (37.0-47.0); MCH 26.5 pg (26.0-34.0); MCHC 32.1 g/dL (28.0-37.0); MCV 82.4 fL (80.0-100.0); PLATELET COUNT 231 thou/uL (150-400); RBC 4.52 mil/uL (4.20-5.00); RDW 20.9 % (10.5-14.5); WBC 8.8 thou/uL (4.0-11.0)
[2021-02-10 15:21] LABS: CREATININE 4.8 mg/dL (0.6-1.0); POTASSIUM 3.7 mmol/L (3.5-5.1)
[2021-02-10 15:32] LABS: ALBUMIN 3.6 g/dL (3.4-5.0); TOTAL BILIRUBIN 0.5 mg/dL (0.2-1.0); TOTAL PROTEIN 8.3 g/dL (6.4-8.2)
[2021-02-10 15:58] LABS: ABSOLUTE NEUTROPHILS 6.9 thou/uL (1.4-8.2)
[2021-02-10 15:59] LABS: ANISOCYTOSIS 1+; MACROCYTES FEW
[2021-02-10 17:06] VITALS: BP 137/68
== END 2021-02-10 17:06 | disposition home or self-care (01) ==
LOC: ER 13:19
PROVIDERS: Emergency Medicine
DX: G89.29 Other chronic pain (principal); R10.84 Generalized abdominal pain; Z20.822 Contact with and (suspected) exposure to COVID-19; R11.2 Nausea with vomiting, unspecified; E11.22 Type 2 diabetes mellitus with diabetic chronic kidney disease; I12.0 Hypertensive chronic kidney disease with stage 5 chronic kidney disease or end stage renal disease; N18.6 End stage renal disease; E78.5 Hyperlipidemia, unspecified; K21.9 Gastro-esophageal reflux disease without esophagitis; F32.9 Major depressive disorder, single episode, unspecified; K31.84 Gastroparesis; Z79.2 Long term (current) use of antibiotics; Z79.4 Long term (current) use of insulin; Z79.899 Other long term (current) drug therapy; Z88.6 Allergy status to analgesic agent; Z88.1 Allergy status to other antibiotic agents

== ENCOUNTER 2021-02-16 08:11 | Emergency (ER) | payer OTHER ==
[~2021-02-16] VITALS: Ht 167.6 cm; Wt 86.2 kg
[2021-02-16 11:30] LABS: RBC 4.25 mil/uL (4.20-5.00)
[2021-02-16 11:35] LABS: HEMATOCRIT 35.3 % (37.0-47.0); HEMOGLOBIN 11.5 gm/dL (12.0-15.0); MCHC 32.6 g/dL (28.0-37.0); PLATELET COUNT 200 thou/uL (150-400); RDW 20.9 % (10.5-14.5); WBC 9.3 thou/uL (4.0-11.0)
[2021-02-16 11:43] LABS: CALCIUM 8.3 mg/dL (8.5-10.1); CREATININE 5.9 mg/dL (0.6-1.0); POTASSIUM 3.7 mmol/L (3.5-5.1)
[2021-02-16 11:55] LABS: ALBUMIN 3.6 g/dL (3.4-5.0); TOTAL BILIRUBIN 0.5 mg/dL (0.2-1.0); TOTAL PROTEIN 8.1 g/dL (6.4-8.2)
--- NOTE | 2021-02-16 12:37 | EKG ---
[address] [place] [address] ELECTROCARDIOGRAM REPORT Name: MELLY SHELTONShanell Martín Room #: [facility]#: [id number] Admission: 02/16/21 Attend Phys: Discharge: Date of : 76 Report #: [id number] [facility] ED Test Date: 2021-02-16 Test Time: 08:54:03 Pat Name: SIDNEY SHELTON Department: Room: Gender: F Jira Developer: : 1980 Requested By: Tod Javier Order Number: [id number] MD: William Cervantes Measurements Intervals [place] Rate: 80 P: 33 WV: 125 QRS: 207 QRSD: 141 T: 44 QT: 465 QTc: 537 Interpretive Statements Sinus rhythm RBBB Nonspecific intraventricular conduction delay Compared to ECG 02/10/2020 15:48:25 Intraventricular conduction delay now present T-wave abnormality no longer present Electronically Signed On 02-16-2021 12:36:43 CDT by William Cervantes [email or web address] <ELECTRONICALLY SIGNED> By: William Cervantes MD, [facility] 02/16/21 1236 0854 3 William Cervantes MD, [facility]ACC /EPI
[2021-02-16 12:38] LABS: ABSOLUTE NEUTROPHILS 6.8 thou/uL (1.4-8.2); ANISOCYTOSIS 1+; PLATELET ESTIMATE NORMAL
[2021-02-16] MEDS ORDERED: ONDANSETRON HCL4 M2 PO (13:35)
[2021-02-16 14:04] VITALS: BP 163/71
== END 2021-02-16 14:04 | disposition home or self-care (01) ==
LOC: ER 08:11
PROVIDERS: Student in an Organized Health Care Education/Training Program
DX: R10.13 Epigastric pain (principal); K31.84 Gastroparesis; R11.2 Nausea with vomiting, unspecified; N18.6 End stage renal disease; E78.5 Hyperlipidemia, unspecified; F32.9 Major depressive disorder, single episode, unspecified; I12.0 Hypertensive chronic kidney disease with stage 5 chronic kidney disease or end stage renal disease; E11.22 Type 2 diabetes mellitus with diabetic chronic kidney disease; Z99.2 Dependence on renal dialysis; Z98.890 Other specified postprocedural states; Z79.899 Other long term (current) drug therapy; Z79.4 Long term (current) use of insulin; Z88.8 Allergy status to other drugs, medicaments and biological substances; Z88.6 Allergy status to analgesic agent

== ENCOUNTER 2021-02-24 04:38 | Emergency (ER) | payer OTHER ==
[~2021-02-24] VITALS: Ht 152.4 cm; Wt 86.2 kg
[2021-02-24 04:44] VITALS: BP 155/60
[2021-02-24 05:24] LABS: HEMATOCRIT 34.7 % (37.0-47.0); HEMOGLOBIN 11.3 gm/dL (12.0-15.0); MCH 27.3 pg (26.0-34.0); MCHC 32.6 g/dL (28.0-37.0); MCV 83.9 fL (80.0-100.0); PLATELET COUNT 183 thou/uL (150-400); RBC 4.13 mil/uL (4.20-5.00); RDW 19.6 % (10.5-14.5); WBC 7.2 thou/uL (4.0-11.0)
[2021-02-24 05:47] LABS: CALCIUM 8.2 mg/dL (8.5-10.1); CREATININE 4.4 mg/dL (0.6-1.0); POTASSIUM 3.8 mmol/L (3.5-5.1)
[2021-02-24 05:58] LABS: ALBUMIN 3.4 g/dL (3.4-5.0); MAGNESIUM 1.9 mg/dL (1.8-2.4); TOTAL BILIRUBIN 0.5 mg/dL (0.2-1.0)
--- NOTE | 2021-02-24 06:51 | EKG ---
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 02/24/21 0651 D: 08/525 5 William Cervantes MD, FACC /EPI
[2021-02-24 07:42] LABS: ABSOLUTE NEUTROPHILS 5.1 thou/uL (1.4-8.2); ANISOCYTOSIS 1+
[2021-02-24 07:43] LABS: OVALOCYTES FEW
== END 2021-02-24 06:30 | disposition left against medical advice (07) ==
LOC: ER 04:38
DX: F19.90 Other psychoactive substance use, unspecified, uncomplicated (principal); R10.84 Generalized abdominal pain; R11.2 Nausea with vomiting, unspecified; N18.6 End stage renal disease; K31.84 Gastroparesis; E78.5 Hyperlipidemia, unspecified; I12.0 Hypertensive chronic kidney disease with stage 5 chronic kidney disease or end stage renal disease; K21.9 Gastro-esophageal reflux disease without esophagitis; F32.9 Major depressive disorder, single episode, unspecified; E11.43 Type 2 diabetes mellitus with diabetic autonomic (poly)neuropathy; Z79.4 Long term (current) use of insulin; Z79.899 Other long term (current) drug therapy; Z88.9 Allergy status to unspecified drugs, medicaments and biological substances; Z88.8 Allergy status to other drugs, medicaments and biological substances